=== PATIENT | male | born 1995 | race Caucasian/White ===

== ENCOUNTER 2016-10-28 17:54 | Emergency (ER) | payer MEDICAID, OTHER ==
[~2016-10-28] VITALS: Wt 88.0 kg
[2016-10-28] MEDS ORDERED: IBUPROFEN 800 MG TAB PO ONE (20:00)
--- NOTE | 2016-10-28 20:53 | RADRPT ---
PROCEDURE: knee x-ray CLINICAL INDICATION: knee pain TECHNIQUE: AP, lateral and oblique views of the right knee were obtained. COMPARISON: None FINDINGS: No evidence of fracture or dislocation. The medial, lateral, as well as patellofemoral knee joint compartments are well maintained. No joint effusion. No soft tissue or osseous abnormality. IMPRESSION: 1. No fracture or dislocation. 2. No joint effusion. 3. No soft tissue abnormality. RPTAT:AAJJ Physician Zac Date Time Electronically viewed and signed by Physician Zac on 10/28/2016 20:53 CHANEL/
[2016-10-28] MEDS ORDERED: NAPR-260 PO (20:58)
--- NOTE | 2016-10-28 20:58 | ERD ---
ER Documentation Chief Complaint Date/Time DATE: 10/28/16 TIME: 20:56 Chief Complaint right knee pain for the past 2 wks, no recent trauma. no deficit noted. HPI This is a 21-year-old male presents to the emergency room for evaluation of right-sided knee pain. The patient states that he was snowboarding 2 weeks ago noticed some pain in his right knee. He denies any trauma to the area and states that the pain is an achy pain localized to the outer portion of the right knee. The patient states that he is able to walk but came to the ER today for evaluation of pain. ROS All systems reviewed and are negative except as per history of present illness. Medications Home Meds Discontinued Reported Medications [None] No Conflict Check 03/20/11 Allergies Allergies: Coded Allergies: No Known Drug Allergy (Verified Allergy, Unknown, 10/28/16) PMhx/Soc Medical and Surgical Hx: pt denies Medical Hx, pt denies Surgical Hx History of Surgery: Yes (tonsillectomy) Anesthesia Reaction: No Hx Neurological Disorder: No Hx Respiratory Disorders: No Hx Cardiac Disorders: No Hx Psychiatric Problems: No Hx Miscellaneous Medical Probl: Yes (ear problems) Hx Alcohol Use: No Hx Substance Use: No Hx Tobacco Use: No Smoking Status: Never smoker Physical Exam Vitals Vital Signs Date Time Temp Pulse Resp B/P Pulse Ox O2 Delivery O2 Flow Rate FiO2 10/28/16 17:58 97.8 73 21 140/65 99 Physical Exam Const: No acute distress Head: Atraumatic Eyes: Normal Conjunctiva ENT: Normal External Ears, Nose and Mouth. Neck: Full range of motion..~ No meningismus. Resp: Clear to auscultation bilaterally Cardio: Regular rate and rhythm, no murmurs Abd: Soft, non tender, non distended. Normal bowel sounds Skin: No petechiae or rashes Back: No midline or flank tenderness Ext: No cyanosis, or edema, no erythema, mild tenderness to palpation of the lateral aspect of the right Neur: Awake and alert Psych: Normal Mood and Affect Results 24 hrs Current Medications Medications (Trade) Dose Ordered Sig/Juancho Route PRN Reason Start Time Stop Time Status Last Admin Dose Admin Ibuprofen (Motrin) 800 mg ONCE ONCE PO 10/28/16 20:00 10/28/16 20:01 DC 10/28/16 19:54 Procedures/MDM X-ray Knee 3V Interpreted by me: Bones: [No fracture] Joints: [No dislocation] Foreign body: [None] This 21-year-old male presents to the emergency room for evaluation of right- sided knee pain. This patient is ambulating in the ER without difficulty. He did have mild tenderness to palpation on my examination on the lateral aspect of the knee. The patient was given Motrin, and x-ray does not reveal any fractures. The patient was given an Ken wrap and will be discharged home with a prescription for Naprosyn and instructions to avoid physical activity for the next 5 days Departure Diagnosis: Primary Impression: Right knee pain Condition: Stable CAITY SLAUGHTER DO Oct 28, 2016 20:58
== END 2016-10-28 21:00 | disposition home or self-care (01) ==
LOC: E/R 17:54
DX: M25.561 Pain in right knee (principal)
CPT/HCPCS: 73562; Z7502; Z7610

== ENCOUNTER 2017-05-24 06:03 | Emergency (ER) | payer MEDICAID ==
[~2017-05-24] VITALS: Ht 182.9 cm; Wt 87.5 kg
[~2017-05-24 06:03] MED LIST: NAPR-260 PO
[2017-05-24 06:13] VITALS: Ht 182.9 cm; Wt 87.5 kg
[2017-05-24] MEDS ORDERED: ACETAMINOPHEN 500 MG TAB PO STA (06:29)
--- NOTE | 2017-05-24 07:12 | RADRPT ---
PROCEDURE: XR Chest. CLINICAL INDICATION: Fever, headache TECHNIQUE: 2 AP views of the chest were obtained COMPARISON: None. FINDINGS: No focal airspace opacification, pleural effusion or pneumothorax is seen. The cardiomediastinal si lhouette is within normal limits for size. The osseous structures are unremarkable. IMPRESSION: Unremarkable chest x-ray. RPTAT: HH .Stephy Mason MD, MD Date Time Electronically viewed and signed by .Stephy Mason MD, on 05/24/2017 07:12 .G/
[2017-05-24] MEDS ORDERED: ACET325T33 PO (07:45)
--- NOTE | 2017-05-24 08:06 | ERD ---
ER Documentation Chief Complaint Date/Time DATE: 05/24/17 TIME: 08:04 Chief Complaint Neck pain 4-5 days, HERNANDEZ for 3 days and fever for 2 days HPI This is a 21-year-old male presents to the emergency department complaining of fever for the past 2 days. Patient denies any cough, congestion, abdominal pain , sore throat. Denies vomiting or diarrhea. Patient admits to having neck pain for the past 4-5 days in the posterior neck. He admits to having a headache for 3 days. He states that he took ibuprofen this morning with not much relief. ROS All systems reviewed and are negative except as per history of present illness. Medications Home Meds Active Scripts Acetaminophen* (Tylenol*) 325 Mg Tablet, 2 TAB PO Q4 Y for PAIN AND OR ELEVATED TEMP, #30 TAB Prov:ARIANA HORTA PA-C 05/24/17 Naproxen* (Naprosyn*) 500 Mg Tablet, 500 MG PO BID Y for PAIN AND/OR INFLAMMATION, #20 TAB Prov:CAITY SLAUGHTER DO 10/28/16 Allergies Allergies: Coded Allergies: No Known Drug Allergy (Verified Allergy, Unknown, 10/28/16) PMhx/Soc History of Surgery: Yes (tonsillectomy) Anesthesia Reaction: No Hx Neurological Disorder: No Hx Respiratory Disorders: No Hx Cardiac Disorders: No Hx Psychiatric Problems: No Hx Miscellaneous Medical Probl: Yes (ear problems) Hx Alcohol Use: No Hx Substance Use: No Hx Tobacco Use: No Physical Exam Vitals Vital Signs Date Time Temp Pulse Resp B/P Pulse Ox O2 Delivery O2 Flow Rate FiO2 05/24/17 06:13 101.8 97 20 126/64 96 Physical Exam Const: WD/WN, NAD Head: Atraumatic Eyes: Normal Conjunctiva ENT: Normal External Ears, Nose and Mouth. Neck: Full range of motion..~ No meningismus. Resp: Clear to auscultation bilaterally Cardio: Regular rate and rhythm, no murmurs Abd: Soft, non tender, non distended. Normal bowel sounds Skin: No petechiae or rashes Back: No midline or flank tenderness Ext: No cyanosis, or edema Neur: Awake and alert Psych: Normal Mood and Affect Results 24 hrs Current Medications Medications (Trade) Dose Ordered Sig/Juancho Route PRN Reason Start Time Stop Time Status Last Admin Dose Admin Acetaminophen (Tylenol Tab) 1,000 mg ONCE STAT PO 05/24/17 06:29 05/24/17 06:31 DC 05/24/17 06:44 Procedures/MDM ,This is a 21-year-old male presents to the emergency department with fever for the past 2 days. Patient appears nontoxic, he is speaking clearly and does not seem to be in any distress. There was no evidence of meningitis. No evidence of pneumonia, strep pharyngitis, otitis media. Chest x-ray was done in the ED did not show any evidence of infiltrates, pneumothorax or pleural effusion. Patient was given Tylenol I have reassessed him and he feels a lot better. I discussed with him to follow-up with his primary care physician and he understands and agrees with this plan Departure Diagnosis: Primary Impression: Fever Condition: Stable Patient Instructions: Fever Control (Adult) Referrals: NO PRIMARY,CARE PHYSICIAN (PCP) Additional Instructions: FOLLOW UP WITH YOUR PRIMARY CARE PHYSICIAN TOMORROW.Return to this facility if you are not improving as expected. Return to this facility if you are not improving as expected. Take all medicines as directed. ARIANA HORTA PA-C May 24, 2017 08:06
[2017-05-24 08:13] VITALS: TEMP 99.8
[2017-05-24] MEDS ORDERED: IBUP-1542 PO (22:01)
== END 2017-05-24 08:13 | disposition home or self-care (01) ==
LOC: FTE 06:03
DX: R50.9 Fever, unspecified (principal)
CPT/HCPCS: 71010; Z7502; Z7610

== ENCOUNTER 2017-05-24 18:23 | Emergency (ER) | payer MEDICAID ==
[~2017-05-24] VITALS: Ht 172.7 cm; Wt 82.5 kg
[~2017-05-24 18:23] MED LIST changes: +ACET325T33 PO
[2017-05-24 18:30] VITALS: Ht 172.7 cm; Wt 82.5 kg
--- NOTE | 2017-05-24 19:35 | ERD ---
ER Documentation Chief Complaint Date/Time DATE: 05/24/17 TIME: 19:30 Chief Complaint headache x 5 days HPI 21-year-old male presents to emergency department for complaint of headache neck pain and fever for the last 5 days. Patient had a headache for the last 5 days, throbbing pain, 6/10 scale, neck pain started 3 days ago. Patient started to have fever 2 days ago and chills. Patient denies any other symptoms. Patient denies any sore throat or ear pain. Denies any ear pain. Patient denies any runny nose nasal congestion. Patient denies any sore recent travel. Patient denies any fever or chills. ROS All systems reviewed and are negative except as per history of present illness. Medications Home Meds Active Scripts Acetaminophen* (Tylenol*) 325 Mg Tablet, 2 TAB PO Q4 Y for PAIN AND OR ELEVATED TEMP, #30 TAB Prov:ARIANA HORTA PA-C 05/24/17 Naproxen* (Naprosyn*) 500 Mg Tablet, 500 MG PO BID Y for PAIN AND/OR INFLAMMATION, #20 TAB Prov:CAITY SLAUGHTER DO 10/28/16 Allergies Allergies: Coded Allergies: No Known Drug Allergy (Verified Allergy, Unknown, 05/24/17) PMhx/Soc History of Surgery: Yes (tonsillectomy) Anesthesia Reaction: No Hx Neurological Disorder: No Hx Respiratory Disorders: No Hx Cardiac Disorders: No Hx Psychiatric Problems: No Hx Miscellaneous Medical Probl: Yes (ear problems) Hx Alcohol Use: No Hx Substance Use: No Hx Tobacco Use: No Smoking Status: Never smoker FmHx Family History: No coronary disease, No diabetes, No other Physical Exam Vitals Vital Signs Date Time Temp Pulse Resp B/P Pulse Ox O2 Delivery O2 Flow Rate FiO2 05/24/17 18:30 97.8 72 20 128/65 98 Physical Exam GENERAL: The patient is well developed and appropriate for usual state of health, in no apparent distress. CHEST: Clear to auscultation bilaterally. There are no rales, wheezes or rhonchi. HEART: Regular rate and rhythm. No murmurs, clicks, rubs or gallops. No S3 or S4. ABDOMEN: Soft, nontender and nondistended. Good bowel sounds. No rebound or guarding. No gross peritonitis. No gross organomegaly or masses. No Rivas sign or McBurney point tenderness. BACK: No midline or flank tenderness. EXTREMITIES: Equal pulses bilaterally. There is no peripheral clubbing, cyanosis or edema. No focal swelling or erythema. Full range of motion. Grossly neurovascularly intact. NEURO: Alert and oriented. Cranial nerves 2-12 intact. Motor strength in all 4 extremities with 5/5 strength. Sensation grossly intact. Normal speech and gait. Negative Kernig Sign, Negative Brudzinski sign. SKIN: There is no apparent rash or petechia. The skin is warm and dry. HEMATOLOGIC AND LYMPHATIC: There is no evidence of excessive bruising or lymphedema. No gross cervical, axillary, or inguinal lymphadenopathy. Result Diagram: 05/24/17194305/24/171943 Results 24 hrs Laboratory Tests Test 05/24/17 19:44 White Blood Count 5.910^3/ul Red Blood Count 4.7810^6/ul Hemoglobin 14.2g/dl Hematocrit 43.4% Mean Corpuscular Volume 90.8fl Mean Corpuscular Hemoglobin 29.7pg Mean Corpuscular Hemoglobin Concent 32.7g/dl Red Cell Distribution Width 12.2% Platelet Count 74591^3/UL Mean Platelet Volume 10.7fl Neutrophils % 65.5% Lymphocytes % 22.7% Monocytes % 9.3% Eosinophils % 2.0% Basophils % 0.3% Nucleated Red Blood Cells % 0.0/100WBC Neutrophils # 3.910^3/ul Lymphocytes # 1.410^3/ul Monocytes # 0.610^3/ul Eosinophils # 0.110^3/ul Basophils # 0.010^3/ul Nucleated Red Blood Cells # 0.010^3/ul Erythrocyte Sedimentation Rate 4mm/Hr Sodium Level 139mmol/L Potassium Level 4.0mmol/L Chloride Level 102mmol/L Carbon Dioxide Level 30mmol/L Anion Gap 11 Blood Urea Nitrogen 14mg/dl Creatinine 1.11mg/dl Glucose Level 96mg/dl Calcium Level 9.0mg/dl Total Bilirubin 1.8mg/dl Direct Bilirubin 0.00mg/dl Indirect Bilirubin 1.8mg/dl Aspartate Amino Transf (AST/SGOT) 25IU/L Alanine Aminotransferase (ALT/SGPT) 34IU/L Alkaline Phosphatase 47IU/L C-Reactive Protein < 0.5mg/dl Total Protein 7.4g/dl Albumin 4.1g/dl Globulin 3.30g/dl Albumin/Globulin Ratio 1.24 PROCEDURE: CT Brain without contrast. CLINICAL INDICATION: Headache TECHNIQUE: A CT of the brain was performed on a multidetector CT scanner utilizing axial sections from the skull base through the vertex without contrast. Images were reviewed on a high-resolution PACS workstation. Exam CTDI = 43.95 mGy and the DLP = 720.23 mGy-cm. One or more of the following dose reduction techniques were used: Automated exposure control Adjustment of the mA and/or kV according to patient size. Use of iterative reconstruction technique. COMPARISON: None available FINDINGS: There is no evidence of intracranial hemorrhage, mass effect or midline shift. Incidental note is made of a small right retrocerebellar cyst. No abnormal intra -axial or extra-axial fluid collections are seen. The density of the brain is normal and the hawley/white matter differentiation is well preserved. The osseous structures are unremarkable. The paranasal sinuses are clear. IMPRESSION: 1. No intracranial hemorrhage, mass effect or midline shift. RPTAT: HHO .Amber Jefferson MD, MD Date Time Electronically viewed and signed by .Amber Jefferson MD, MD on 05/24/2017 20:48 .O/ Procedures/MDM Medical Decision making: Patient's symptoms of headache fever or neck pain is specific at this time, possible viral in origin. Patient's radiology exam does not show any abnormalities, no symptoms of any abscess. No leukocytosis, no bandemia, fever is controlled at this time. Inflammatory markers are negative for any inflammatory changes. Low suspicion for any meningitis. Negative Kernig' s sign or Brudzinski's sign. Prescription was given here in emergency department for ibuprofen, patient is advised to follow with primary doctor to 3 days for reevaluation of symptoms. Patient is advised to return to emergency department for any worsening symptoms. Less than Disposition: Home. Stable. Departure Diagnosis: Primary Impression: Viral illness Condition: Stable ESTHER BRYSON. [employer]DER May 24, 2017 19:35
[2017-05-24 19:57] LABS: BASOPHILS % 0.3 % (0.0-2.0); EOSINOPHILS # 0.1 10^3/ul (0.0-0.5); HEMATOCRIT 43.4 % (42.0-52.0); HEMOGLOBIN 14.2 g/dl (14.0-18.0); LYMPHOCYTES # 1.4 10^3/ul (0.8-2.9); LYMPHOCYTES % 22.7 % (15.0-51.0); MEAN CORPUSCULAR HEMOGLOBIN 29.7 pg (29.0-33.0); MEAN CORPUSCULAR HGB CONC 32.7 g/dl (32.0-37.0); MEAN CORPUSCULAR VOLUME 90.8 fl (82.0-101.0); MEAN PLATELET VOLUME 10.7 fl (7.4-10.4); MONOCYTE # 0.6 10^3/ul (0.3-0.9); MONOCYTES % 9.3 % (0.0-11.0); NEUTROPHIL # 3.9 10^3/ul (1.6-7.5); NEUTROPHILS % 65.5 % (39.0-77.0); PLATELET COUNT 218 10^3/UL (140-415); RED BLOOD COUNT 4.78 10^6/ul (4.70-6.10); RED CELL DISTRIBUTION WIDTH 12.2 % (11.5-14.5); WHITE BLOOD COUNT 5.9 10^3/ul (4.8-10.8)
[2017-05-24 20:20] LABS: ALANINE AMINOTRANSFERASE 34 IU/L (13-69); ALBUMIN 4.1 g/dl (3.3-4.9); ALBUMIN/GLOBULIN RATIO 1.24; ALKALINE PHOSPHATASE 47 IU/L (42-121); ANION GAP 11 (8-16); ASPARTATE AMINO TRANSFERASE 25 IU/L (15-46); BILIRUBIN,INDIRECT 1.8 mg/dl (0-1.1); BILIRUBIN,TOTAL 1.8 mg/dl (0.2-1.3); BLOOD UREA NITROGEN 14 mg/dl (7-20); C-REACTIVE PROTEIN < 0.5 mg/dl (0.0-0.9); CARBON DIOXIDE 30 mmol/L (21-31); CHLORIDE 102 mmol/L (97-110); CREATININE 1.11 mg/dl (0.61-1.24); GLUCOSE 96 mg/dl (70-220); SODIUM 139 mmol/L (135-144); TOTAL PROTEIN 7.4 g/dl (6.1-8.1)
--- NOTE | 2017-05-24 20:48 | RADRPT ---
PROCEDURE: CT Brain without contrast. CLINICAL INDICATION: Headache TECHNIQUE: A CT of the brain was performed on a multidetector CT scanner utilizing axial sections from the skull base through the vertex without contrast. Images were reviewed on a high-resolution [employer] workstation. Exam CTDI = 43.95 mGy and the DLP = 720.23 mGy-cm. One or more of the following dose reduction techniques were used: Automated exposure control Adjustment of the mA and/or kV according to patient size. Use of iterative reconstruction technique. COMPARISON: None available FINDINGS: There is no evidence of intracranial hemorrhage, mass effect or midline shift. Incidental note is ma de of a small right retrocerebellar cyst. No abnormal intra-axial or extra-axial fluid collections a re seen. The density of the brain is normal and the hawley/white matter differentiation is well prese rved. The osseous structures are unremarkable. The paranasal sinuses are clear. IMPRESSION: 1. No intracranial hemorrhage, mass effect or midline shift. RPTAT: HHO .Amber Jefferson MD, MD Date Time Electronically viewed and signed by .Amber Jefferson MD, on 05/24/2017 20:48 .O/
--- NOTE | 2017-05-24 20:53 | RADRPT ---
PROCEDURE: CT Cervical Spine. CLINICAL INDICATION: Neck pain TECHNIQUE: A CT of the cervical spine was performed on a multi-slice CT scanner utilizing high-res olution axial imaging from the skull base through the cervical thoracic junction. Sagittal, coronal , and multiplanar reformatted images were made. CTD I: 17.15 mGy and DLP: 374.01 mGy-cm One or more of the following dose reduction techniques were used: Automated exposure control. Adjustment of the mA and/or kV according to patient size. Use of iterative reconstruction technique. COMPARISON: None FINDINGS: There is a normal lordosis of the cervical spine. No vertebral body subluxation is seen. No fractu res are evident. The posterior elements are normally aligned. The surrounding soft tissues are nor mal in appearance. The intervertebral discs are normal in height. No significant disk bulge or pro trusion is seen. The central canal and foramina are adequately patent at all levels. 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 IMPRESSION: 1. No acute fracture or traumatic malalignment. RPTAT: HHO .Amber Jefferson MD, MD Date Time Electronically viewed and signed by .Amber Jefferson MD, MD on 05/24/2017 20:52 .O/
[2017-05-24 22:01] VITALS: BP 118/86; PULSE 84; RESP 18
[2017-05-24] MEDS ORDERED: IBUP-1542 PO (22:01)
[2017-05-24] MEDS ORDERED: IBUPROFEN 600 MG TAB PO ONE (22:30)
[2017-05-24] MEDS ORDERED: ACETAMINOPHEN 325 MG TAB PO ONE (22:30)
[2017-05-24 22:37] VITALS: TEMP 98.9
== END 2017-05-24 22:37 | disposition home or self-care (01) ==
LOC: FTE 18:23
DX: B34.9 Viral infection, unspecified (principal); M54.2 Cervicalgia
CPT/HCPCS: 70450; 72125; 80053; 85025; 85651; 86140; Z7502; Z7610

== ENCOUNTER 2017-11-17 20:44 | Emergency (ER) | END 2017-11-17 21:13 | disposition home or self-care (01) ==

== ENCOUNTER 2018-02-11 19:44 | Emergency (ER) | END 2018-02-12 | disposition home or self-care (01) ==